=== PATIENT | male | born 1965 | race Caucasian/White ===

== ENCOUNTER 2024-03-10 06:05 | Day surgery (SDC) | payer BC, SELFPAY ==
[2024-03-08 09:47] VITALS: BMI 24.7
[2024-03-08 10:25] LABS: % Basophils 0.5 % (0-2); % Eosinophils 1.1 % (0-6); % Immature Granulocytes 0.5 % (0-0.5); % Lymphocytes 30.2 % (20.5-51.1); % Monocytes 10.6 % (1.7-9.3); % Neutrophils 57.1 % (42.2-75.2); Absolute Eosinophils 0.1 10^3/uL (0-0.7); Absolute Lymphocytes 2.3 10^3/uL (1.2-3.4); Absolute Monocytes 0.8 10^3/uL (0.1-0.6); Absolute Neutrophils 4.3 10^3/uL (1.4-6.5); Hematocrit 41.2 % (39.0-52.0); Hemoglobin 14.6 g/dL (13.0-18.0); Mean Corp Hgb Conc. 35.4 g/dL (33.0-37.0); Mean Corpuscular Hgb 33.3 pg (27.0-31.0); Mean Corpuscular Volume 93.8 fL (80.0-94.0); Mean Platelet Volume 8.9 fL (7.4-10.4); Nucleated Red Blood Cells % 0 % (-); Platelet Count 234 10^3/uL (130-400); Red Blood Cell Count 4.39 10^6/uL (4.70-6.10); Red Cell Dist. Width 12.6 % (11.5-14.5); White Blood Cell Count 7.5 10^3/uL (4.8-10.8)
[2024-03-08 11:13] LABS: ALT (SGPT) 80 U/L (0-50); AST (SGOT) 80 U/L (17-59); Albumin 4.8 g/dl (3.5-5.0); Alkaline Phosphatase 47 U/L (38-126); Blood Urea Nitrogen 17 mg/dl (9-20); Calcium 10.3 mg/dl (8.4-10.2); Carbon Dioxide 28 mmol/L (22-30); Chloride 103 mmol/L (98-107); Estimated Creatinine Clearance 51 ml/min; Glucose 117 mg/dl (70-99); Potassium 5.2 mmol/L (3.5-5.1); Sodium 140 mmol/L (135-145); Total Bilirubin 0.8 mg/dl (0.2-1.3); Total Protein 7.2 g/dl (6.3-8.2); eGFR > 60.00
[2024-03-10] VITALS (11 sets, daily range): BP systolic 97–156; BP diastolic 50–87
[2024-03-10] MEDS: NSS 196 ML IV (06:59)
--- NOTE | 2024-03-10 08:23 | ITS.CL.CATH ---
Tile Layer Drainage - Catheterization
Cardiac Catheterization
Procedure Report:
CARDIAC CATHETERIZATION REPORT
Date of Procedure: 03/10/2024
Referring: Jennifer Nicholson MD
Indication: Very high calcium score (>2500) with possible small area of apical ischemia on PET CT
�
HEMODYNAMIC DATA
AO: 116/58
LV: 116/12
�
LEFT VENTRICULOGRAPHY: Normal wall motion with EF 62%
�
CORONARY ANGIOGRAPHY
Dominance: Right
Left Main: Normal
LAD: Heavy calcification in the proximal and mid LAD. There is a 30-40% proximal LAD stenosis and a tubular 40-50% mid LAD stenosis
Circumflex: The circumflex is mildly calcified. There are trivial luminal irregularities in the circumflex system
RCA: The RCA is severely calcified. There are tandem 20% proximal to mid and 30% mid RCA stenoses with otherwise mild luminal irregularities
�
Closure Device: 6 Y[place] Angio-Seal RFA. Of note, radial artery access was obtained with a micropuncture needle with brisk arterial flow. The soft wire would only advance about 3-4 cm and could not be advanced further. A second stick was made
with the same outcome. We then converted to a femoral approach.
�
Radiation (mGy): 165
DAP (cm2.Gy): 11.9
Fluoroscopy time: 1.5 minutes
�
CONCLUSIONS
1:�Normal left ventricular function with EF 62%
2:�Severely calcified coronaries with mild noncritical lesions
3. Recommend smoking cessation and continued treatment with high intensity statin/low-dose aspirin
�
�
Copy to: Jennifer Nicholson MD, Nicolle Bond DO
�
Austin Grove MD, [facility]
[2024-03-10] MEDS: NSS 1000 IV (08:46)
== END 2024-03-10 11:00 | disposition home or self-care (01) ==
LOC: CATH 06:05
PROVIDERS: ATTENDING PHYSICIAN Internal Medicine Cardiovascular Disease; FAMILY PHYSICIAN Family Medicine; OTHER PHYSICIAN Internal Medicine Cardiovascular Disease; OTHER PHYSICIAN Physician Assistant Medical
DX: I25.10 Atherosclerotic heart disease of native coronary artery without angina pectoris (principal); R07.89 Other chest pain; I10 Essential (primary) hypertension; E78.5 Hyperlipidemia, unspecified; F17.210 Nicotine dependence, cigarettes, uncomplicated; Z82.49 Family history of ischemic heart disease and other diseases of the circulatory system; Z79.82 Long term (current) use of aspirin
CPT/HCPCS: 36415; 80053; 85025; 93005; 93458; 93880; C1760; C1894; Q9967